=== PATIENT | female | born 1995 | race Hispanic/Latino ===

== ENCOUNTER 2020-03-21 16:36 | Emergency (ER) | payer MEDICAID ==
[~2020-03-21] VITALS: Ht 165.1 cm; Wt 81.0 kg
[2020-03-21] MEDS ORDERED: IBUP-1114 PO (16:42)
[2020-03-21 18:08] LABS: BASO % 0.4 % (0.0-1.0); EOS % 0.3 % (0.0-3.0); HEMATOCRIT 38.2 % (36.0-47.0); HEMOGLOBIN 12.5 g/dl (12.0-15.5); LYMPH # 1.2 10^3/uL (1.5-5.0); LYMPH % 15.6 % (24.0-44.0); MEAN CORPUSCULAR HEMOGLOBIN 27.8 pg (27.0-33.0); MEAN CORPUSCULAR HGB CONC 32.7 g/dl (32.0-36.5); MEAN CORPUSCULAR VOLUME 84.9 fl (80.0-96.0); MONO # 0.4 10^3/uL (0.0-0.8); MONO % 5.4 % (0.0-5.0); NEUTROPHILS # 5.9 10^3/uL (1.5-8.5); PLATELET COUNT, AUTOMATED 283 10^3/uL (150-450); WHITE BLOOD COUNT 7.6 10^3/uL (4.0-10.0)
[2020-03-21 18:25] LABS: ERYTHROCYTE SEDIMENTATION RATE 14 mm/hr (0-20)
[2020-03-21 18:29] LABS: INR 0.95; PROTHROMBIN TIME 12.8 SECONDS (11.8-14.0)
[2020-03-21 18:30] LABS: PARTIAL THROMBOPLASTIN TIME 31.6 SECONDS (25.0-38.4)
[2020-03-21 18:33] LABS: D-DIMER QUANT < 270 ng/ml (<500)
[2020-03-21 18:45] LABS: BLOOD UREA NITROGEN 7 MG/DL (7-18); CALCIUM LEVEL 9.3 MG/DL (8.5-10.1); CARBON DIOXIDE LEVEL 30 MEQ/L (21-32); CHLORIDE LEVEL 107 MEQ/L (98-107); CREATININE FOR GFR 0.76 MG/DL (0.55-1.30); GLOMERULAR FILTRATION RATE > 60.0 (>60); GLUCOSE, FASTING 85 MG/DL (70-100); SODIUM LEVEL 140 MEQ/L (136-145)
[2020-03-21 18:50] LABS: ALBUMIN 3.8 GM/DL (3.2-5.2); ALT/SGPT 23 U/L (12-78); BILIRUBIN,DIRECT < 0.1 MG/DL (0.0-0.2); BILIRUBIN,TOTAL 0.2 MG/DL (0.2-1.0); C REACTIVE PROTEIN QUANTITATIV < 0.30 MG/DL (0.00-0.30); CK-MB VALUE MASS < 1.0 NG/ML (<3.6); CPK CREATINE PHOSPHOKINASE 324 U/L (26-192); FREE T4 0.94 NG/DL (0.76-1.46); LIPASE 52 U/L (73-393); MB/CK RELATIVE INDEX 0.31 (< OR =4); TOTAL PROTEIN 7.3 GM/DL (6.4-8.2); TROPONIN I < 0.02 NG/ML (< 0.10)
[2020-03-21 20:58] VITALS: BP 138/88
--- NOTE | 2020-04-05 15:07 | ECGEPIP ---
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
--- NOTE | 2020-04-11 10:53 | REP ---
CHEST X-RAY: 2-VIEWS HISTORY: Chest pain. COMPARISON: None. FINDINGS: 2-views of the chest are performed and are without evidence of acute infiltrate or pulmonary edema. No other lung abnormality is seen. The heart is normal in size and the mediastinal silhouette is unremarkable. The visualized osseous structures are unremarkable. IMPRESSION: No active pulmonary disease. A preliminary report was provided by [facility] at the time of the examination. ELISE
== END 2020-03-21 21:00 | disposition home or self-care (01) ==
LOC: M ED 16:36
DX: R07.89 Other chest pain (principal); R51 Headache